=== PATIENT | male | born 2000 | race Hispanic/Latino ===

== ENCOUNTER 2022-11-06 15:16 | Emergency (ER) | payer OTHER ==
--- OUTSIDE RECORDS SUMMARY | 2022-11-06 15:18 | XMS REPORT | Continuity of Care Document ---
:2000 Author Organization [facility] t Address [address] [place] [id number] Care Team Providers Name Role Phone ELLIS Attending Clinician Unavailable Ken Attending Clinician Unavailable ELLIS Admitting Clinician Unavailable Ken Admitting Clinician Unavailable Payers Payer Name Policy Type Policy Number Effective Date Expiration Date Christine sheffield [facility] - [id number] 2018 EV BENEFITS 00:00:00 MANAGEMENT Problems This patient has no known problems. Allergies, Adverse Reactions, Alerts This patient has no known allergies or adverse reactions. Social History Smoking Status Start Date Stop Date Source Never Smoker [facility] Medications Ordered Filled Start Stop Current Ordering Indication Dosage Frequency Signature Comments Components Source Medication Medication Date Date Medication? Clinician (SIG) Name Name mupirocin 2 mupirocin 2 No mupirocin [facility] topical % topical 2 % da ointment ointment topical Medi jake APPLY A APPLY A ointment Group SMALL SMALL APPLY A AMOUNT TO AMOUNT TO SMALL THE THE AMOUNT TO AFFECTED AFFECTED THE AREA BY AREA BY AFFECTED TOPICAL TOPICAL AREA BY ROUTE 3 ROUTE 3 TOPICAL TIMES PER TIMES PER ROUTE 3 DAY DAY TIMES PER DAY Vital Signs Vital Name Observation Time Observation Value Comments Source BP Systolic 2020-12-22 00:00:00 117 mm[Hg] [facility] Body Weight 2020-12-22 00:00:00 192.1 [lb_av] [facility] BP Diastolic 2020-12-22 00:00:00 76 mm[Hg] [facility] Height 2020-12-22 00:00:00 69 [in_i] [facility] BMI (Body Mass 2020-12-22 00:00:00 28.4 kg/m2 [facility] Procedures This patient has no known procedures. Encounters Start End Encounter Admission Attending Care Care Encounter Source Date/Time Date/Time Type Type Clinicians Facility Department ID 2022-05-12 2022-05-12 Outpatient ROD_ROSANNE [facility] [id number] [place] 03:57:00 03:57:00 _FRANSICO 0714 [facility] Program 2020-12-22 2020-12-22 Outpatient Derian_W [facility] [id number] [place] 05:06:00 05:06:00 0[facility] 2020-12-22 2020-12-22 AGUSTIN Adkins [place] - [id number] [place] 00:00:00 00:00:00 MD: Betzaida Arreola [facility] [address], [facility], [place]ol [place]OMAL [id number] , Ph. 2020-12-21 2020-12-21 Outpatient RadhaW [facility] [id number] [place] 11:30:00 11:30:00 022 [facility] Results This patient has no known results.
--- NOTE | 2022-11-06 16:31 | RAD REPORT ---
EXAM DESCRIPTION: RAD - Nasal Bones - 11/06/2022 4:19 pm CLINICAL HISTORY: FACIAL PAIN COMPARISON: No comparisons FINDINGS: Mildly comminuted nasal bone fracture is present. Paranasal sinuses and mastoids are gross ly clear. IMPRESSION: Nasal bone fracture.
--- NOTE | 2022-11-06 16:39 | ER ---
Nurse's Notes [facility] Name: Clayton Oliva Jr Age: 22 yrs Sex: Male : 2000 Arrival Date: 11/06/2022 Time: 15:19 Bed 6 Private MD: Diagnosis: Fracture of nasal bones Presentation: 11/06 15:23 Chief complaint: Patient states: "I got elbowed in the nose playing basketball aa5 yesterday". Denies LOC. pt c/o nose pain. 15:23 Acuity: OSIEL 4 aa5 15:23 Method Of Arrival: Ambulatory aa5 15:23 Coronavirus screen: At this time, the client does not indicate any symptoms associated aa5 with coronavirus-19. Ebola Screen: Patient denies travel to an Ebola-affected area in the 21 days before illness onset. Initial Sepsis Screen: Does the patient meet any 2 criteria? No. Patient's initial sepsis screen is negative. Does the patient have a suspected source of infection? No. Patient's initial sepsis screen is negative. Risk Assessment: Do you want to hurt yourself or someone else? Patient reports no desire to harm self or others. Onset of symptoms was October 2022. Historical: - Allergies: 15:31 No Known Allergies; aa5 - PMHx: 15:31 Asthma; aa5 - PSHx: 15:31 Tonsillectomy; aa5 - Immunization history:: Adult Immunizations unknown. - Social history:: Smoking status: Patient denies any tobacco usage or history of. Screenin:[facility] ED Fall Risk Assessment (Adult) History of falling in the last 3 months, mb9 including since admission No falls in past 3 months (0 pts) Confusion or Disorientation No (0 pts) Intoxicated or Sedated No (0 pts) Impaired Gait No (0 pts) Mobility Assist Device Used No (0 pt) Altered Elimination No (0 pt) Score/Fall Risk Level 0 - 2 = Low Risk Oriented to surroundings, Maintained a safe environment. Abuse screen: Denies threats or abuse. Nutritional screening: No deficits noted. Tuberculosis screening: No symptoms or risk factors identified. Assessment: 15:24 General: Appears in no apparent distress. comfortable, Behavior is calm, cooperative, mb9 appropriate for age. Pain: Complains of pain in nose Pain does not radiate. Quality of pain is described as throbbing, Pain began suddenly, Is continuous. Neuro: Lira Agitation-Sedation Scale (RASS): 0 - Alert and Calm Level of Consciousness is awake, alert, obeys commands, Oriented to person, place, time, situation, Appropriate for age. Cardiovascular: Capillary refill < 3 seconds in bilateral fingers toes Patient's skin is warm and dry. Rhythm is regular. Respiratory: Airway is patent Respiratory effort is even, unlabored, Respiratory pattern is regular, symmetrical. Respiratory: Reports "I can't breathe out of my right nostril". GI: Abdomen is flat, non-distended. : No signs and/or symptoms were reported regarding the genitourinary system. EENT:. Derm: Skin is intact, is healthy with good turgor, Skin is dry, Skin is pink, warm \\T\\ dry. Skin temperature is warm. Derm: Musculoskeletal: Range of motion: intact in all extremities, Swelling present in nose No bleeding noted to the nose or bilateral nares. 16:50 Reassessment: Patient appears in no apparent distress at this time. Patient and/or kc6 family updated on plan of care and expected duration. Pain level reassessed. Patient is alert, oriented x 3, equal unlabored respirations, skin warm/dry/pink. Vital Signs: 15:23 BP 147 / 83; Pulse 112; Resp 18 S; Temp 98.0(TE); Pulse Ox 99% on R/A; Weight 95.25 kg aa5 (R); Height 5 ft. 9 in. (175.26 cm) (R); 15:30 BP 147 / 83; Pulse 78; Resp 16; Pulse Ox 100% on R/A; mb9 16:51 BP 136 / 82; Pulse 68; Resp 16; Pulse Ox 99% on R/A; kc6 15:23 Body Mass Index 31.01 (95.25 kg, 175.26 cm) aa5 Cedrick Coma Score: 16:17 Eye Response: spontaneous(4). Verbal Response: oriented(5). Motor Response: obeys kb commands(6). Total: 15. 16:20 Eye Response: spontaneous(4). Verbal Response: oriented(5). Motor Response: obeys kb commands(6). Total: 15. ED Course: 15:19 Patient arrived in ED. as 15:20 Rsoette Colbert FNP-C is [facility]. kb 15:20 Jorge L Zayas MD is Attending Physician. kb 15:23 Arm band placed on Patient placed in an exam room, on a stretcher. aa5 15:24 Kyra Nichols, RN is Primary Nurse. mb9 15:30 Triage completed. aa5 15:31 Bed in low position. Call light in reach. Side rails up X 1. Client placed on mb9 continuous cardiac and pulse oximetry monitoring. NIBP monitoring applied. Door closed. Noise minimized. Warm blanket given. 16:21 Nasal Bones XRAY In Process Unspecified. EDMS 16:52 No provider procedures requiring assistance completed. IV discontinued, intact, kc6 bleeding controlled, No redness/swelling at site. Pressure dressing applied. Administered Medications: No medications were administered Medication: 15:31 VIS not applicable for this client. mb9 Outcome: 16:38 Discharge ordered by MD. kb 16:52 Discharged to home ambulatory, with family. kc6 16:52 Condition: good 16:52 Discharge instructions given to patient, Instructed on discharge instructions, follow up and referral plans. medication usage, Demonstrated understanding of instructions, follow-up care, medications. 16:52 Patient left the ED. kc6 Signatures: Dispatcher [employer] EDTX Rosette Colbert FNP-C FNP-Giana Weiner Audri, RN RN aa5 Marielos Dennis RN RN kc6 Kyra Nichols, CAIO RN mb9 Corrections: (The following items were deleted from the chart) 15:30 15:24 Musculoskeletal: Range of motion: intact in all extremities, Swelling present in mb9 nose mb9
--- NOTE | 2022-11-06 16:39 | EDPHYS ---
Physician Documentation [facility] Name: Clayton Oliva Jr Age: 22 yrs Sex: Male : 2000 Arrival Date: 11/06/2022 Time: 15:19 Bed 6 Private MD: ED Physician Jorge L Zayas HPI: 11/06 16:20 This 22 yrs old Male presents to ER via Ambulatory with complaints of Facial kb Injury. 16:17 Patient reports he was elbowed in the nose during a basketball game yesterday. Reports kb epistaxis upon initial injury that is now resolved. Reports right nare feels partially blocked.. 16:20 The patient or guardian reports pain, swelling, tenderness. The complaints affect the kb nose. Context of injury: The problem was sustained at a sports field or court, resulted from playing sports, basketball. Onset: The symptoms/episode began/occurred yesterday. Associated signs and symptoms: The patient has no apparent associated signs or symptoms, Loss of consciousness: This patient did not experience any loss of consciousness. Severity of symptoms: At their worst the symptoms were moderate, in the emergency department the symptoms are unchanged. The patient has not experienced similar symptoms in the past. The patient has not recently seen a physician. Historical: - Allergies: 15:31 No Known Allergies; aa5 - PMHx: 15:31 Asthma; aa5 - PSHx: 15:31 Tonsillectomy; aa5 - Immunization history:: Adult Immunizations unknown. - Social history:: Smoking status: Patient denies any tobacco usage or history of. ROS: 16:17 Constitutional: Negative for fever, chills, and weight loss. kb 16:17 ENT: Positive for nose bleed, Nasal swelling, pain. 16:17 All other systems are negative. Exam: 16:17 Constitutional: This is a well developed, well nourished patient who is awake, alert, kb and in no acute distress. Head/Face: Normocephalic, atraumatic. Cardiovascular: Regular rate and rhythm with a normal S1 and S2. No gallops, murmurs, or rubs. No pulse deficits. Respiratory: Respirations even and unlabored. No increased work of breathing. Talking in full sentences Abdomen/GI: Soft, non-tender. No distention Skin: Warm, dry with normal turgor. Normal color. MS/ Extremity: Pulses equal, no cyanosis. Neurovascular intact. Full, normal range of motion. Neuro: Awake and alert, GCS 15, oriented to person, place, time, and situation. Moves all extremities. Normal gait. Psych: Awake, alert, with orientation to person, place and time. Behavior, mood, and affect are within normal limits. 16:17 ENT: Nose: External nose: contusion is noted, swelling is noted, bridge of nose. Vital Signs: 15:23 BP 147 / 83; Pulse 112; Resp 18 S; Temp 98.0(TE); Pulse Ox 99% on R/A; Weight 95.25 kg aa5 (R); Height 5 ft. 9 in. (175.26 cm) (R); 15:30 BP 147 / 83; Pulse 78; Resp 16; Pulse Ox 100% on R/A; mb9 16:51 BP 136 / 82; Pulse 68; Resp 16; Pulse Ox 99% on R/A; kc6 15:23 Body Mass Index 31.01 (95.25 kg, 175.26 cm) aa5 Cedrick Coma Score: 16:17 Eye Response: spontaneous(4). Verbal Response: oriented(5). Motor Response: obeys kb commands(6). Total: 15. 16:20 Eye Response: spontaneous(4). Verbal Response: oriented(5). Motor Response: obeys kb commands(6). Total: 15. MDM: 15:24 Patient medically screened. kb 16:17 Differential diagnosis: Contusion of Nasal bone fracture. Data reviewed: vital signs, kb nurses notes. Data interpreted: Pulse oximetry: on room air is 100 %. Interpretation: normal. Counseling: I had a detailed discussion with the patient and/or guardian regarding: the historical points, exam findings, and any diagnostic results supporting the discharge/admit diagnosis, radiology results, the need for outpatient follow up, an ENT specialist, to return to the emergency department if symptoms worsen or persist or if there are any questions or concerns that arise at home. 16:19 ED course: I considered the following discharge prescriptions or medication management kb in the emergency department: Prescription analgesics considered but patient will take [id number] NSAIDs as needed. History obtained from: Patient. 11/06 15:29 Order name: Nasal Bones XRAY; Complete Time: 16:34 kb Administered Medications: No medications were administered Disposition: 16:54 Co-signature as Attending Physician, Jorge L Zayas MD. rn Disposition Summary: 11/06/22 16:38 Discharge Ordered Location: Home Condition: Stable kb Diagnosis - Fracture of nasal bones kb Followup: kb - With: Emergency Department - When: As needed - Reason: Worsening of condition Followup: kb - With: Private Physician - When: 2 - 3 days - Reason: Recheck today's complaints, Continuance of care, Re-evaluation by your physician Discharge Instructions: - Discharge Summary Sheet kb - Nasal Fracture, [id number] kb Forms: - Medication Reconciliation Form kb - Thank You Letter kb - Antibiotic Education kb - Prescription Opioid Use kb Prescriptions: - Augmentin 875-125 mg Oral Tablet - take 1 tablet by ORAL route every 12 hours for 10 days; 20 tablet; Refills: 0, kb Product Selection Permitted - Diclofenac Sodium 75 mg Oral tablet,delayed release (DR/EC) - take 1 tablet by ORAL route 2 times per day As needed; 30 tablet; Refills: 0, kb Product Selection Permitted Signatures: Dispatcher [employer] EDRosette Marie, ENGLISH DRAWER-C ENGLISH DRAWER-Ckb Jorge L Zayas MD MD rn Leslie Glass RN RN aa5
[2022-11-06 16:59] VITALS: TEMP 98
[2022-11-06 17:02] VITALS: BP 136/82; O2SAT 99
== END 2022-11-06 16:52 | disposition home or self-care (01) ==
LOC: ER 15:16
DX: S02.2XXA Fracture of nasal bones, initial encounter for closed fracture (principal)
CPT/HCPCS: 70160; 99283